=== PATIENT | female | born 2000 | race Caucasian/White ===

== ENCOUNTER 2023-06-13 16:35 | Emergency (ER) | payer OTHER ==
[2023-06-13] MEDS: DEXTROSE 5%-0.9% NACL 1,000 ML IV SCH (17:48)
[2023-06-13 18:00] LABS: Basophils % (A) 0 %; Eosinophils # (A) 0.1 k/uL (0-0.7); Eosinophils % (A) 1 %; HCT 40.2 % (34.0-46.0); HGB 13.3 gm/dL (11.4-16.0); Lymphocytes # (A) 0.6 k/uL (1.0-4.8); Lymphocytes % (A) 4 %; MCHC 33.1 g/dL (31.0-37.0); MCV 96.6 fL (80.0-100.0); Mean Platelet Volume 7.2; Monocytes # (A) 0.4 k/uL (0-1.0); Monocytes % (A) 2 %; Neutrophils # (A) 13.4 k/uL (1.3-7.7); Neutrophils % (A) 92 %; Platelet Count 305 k/uL (150-450); RBC 4.16 m/uL (3.80-5.40); WBC 14.5 k/uL (3.8-10.6)
--- NOTE | 2023-06-13 18:01 | ED ---
General Adult HPI - General Chief complaint: Nausea/Vomiting/Diarrhea Stated complaint: Vomiting-7 weeks preg Time Seen by Provider: 06/13/23 17:30 Source: patient, RN notes reviewed, old records reviewed Mode of arrival: ambulatory Limitations: no limitations - History of Present Illness Initial comments: Patient is a 23-year-old female presents emergency department for nausea, vomiting, nonfocal abdominal pain. Patient is 7 weeks . Denies any vaginal discharge or bleeding. Has not yet seen an [facility]. No ultrasound to confirm definitive IUP. No fevers or chills or sick contacts. Patient states she more or less for the last few weeks has been throwing up once a day however does seem to be worse today. This is her first . G1, P0. No other complications. No other acute complaints. Denies any urinary complaints. Presents for further evaluation at this time. - Related Data Home Medications Medication Instructions Recorded Confirmed No Known Home Medications 06/27/15 06/27/15 Allergies Allergy/AdvReac Type Severity Reaction Status Date / Time No Known Allergies Allergy Verified 06/13/23 16:51 Review of Systems ROS Statement: Those systems with pertinent positive or pertinent negative responses have been documented in the HPI. Review of Systems: CONST: Denies fever EYES: Denies blurry vision ENT: Denies nasal congestion C/V: Denies Chest pain RESP: Denies shortness of breath GI: Endorses abdominal cramping : Denies dysuria SKIN: Denies rash. MSK: Denies joint pain. NEURO: Denies headache ROS Other: All systems not noted in ROS Statement are negative. Past Medical History Past Medical History: No Reported History History of Any Multi-Drug Resistant Organisms: None Reported Past Surgical History: No Surgical Hx Reported, Cholecystectomy Past Psychological History: No Psychological Hx Reported Smoking Status: Current every day smoker Past Alcohol Use History: None Reported Past Drug Use History: None Reported, Marijuana General Exam - General Exam Comments Initial Comments: General: Appears in no acute distress. HEAD: Normal with no signs of head trauma. EYES: PERRLA, EOMI, conjunctiva normal, no discharge. ENT: Hearing grossly intact, normal oropharynx. Mildly dry mucous membranes. RESPIRATORY: Clear breath sounds bilaterally. No wheezes, rales, or rhonchi. C/V: Regular rate and rhythm. S1 and S2 auscultated, no edema, peripheral pulses 2+ and intact throughout ABD: Abd is soft, nontender, nondistended EXT: Normal range of motion, no obvious deformity SKIN: No rashes or lesions observed on exposed skin. NEURO: Alert and oriented x 4. Limitations: no limitations Course Vital Signs 06/13/23 06/13/23 16:48 19:18 Temperature 97.8 F 99.3 F Pulse Rate 75 116 H Respiratory 18 20 Rate Blood Pressure 135/80 111/66 O2 Sat by Pulse 100 97 Oximetry Medical Decision Making - Medical Decision Making Was pt. sent in by a medical professional or institution (, PA, [employer], urgent care, hospital, or correction...) When possible be specific @ -No Did you speak to anyone other than the patient for history (EMS, parent, family, police, friend...)? What history was obtained from this source @ -No Did you review nursing and triage notes (agree or disagree)? Why? @ -I reviewed and agree with nursing and triage notes Were old charts reviewed (outside hosp., previous admission, EMS record, old EKG, old radiological studies, urgent care reports/EKG's, correction records)? Report findings @ -No old charts were reviewed Differential Diagnosis (chest pain, altered mental status, abdominal pain women, abdominal pain men, vaginal bleeding, weakness, fever, dyspnea, syncope, headache, dizziness, GI bleed, back pain, seizure, CVA, palpatations, mental health, musculoskeletal)? @ -Nausea and vomiting in , hyperemesis gravidarum, dehydration, UTI. This list is not all inclusive. EKG interpreted by me (3pts min.). @ -None done X-rays interpreted by me (1pt min.). @ -None done CT interpreted by me (1pt min.). @ -None done U/S interpreted by me (1pt. min.). @ - ultrasound reveals a definitive IUP. Gestational age measured to be 6 weeks and 4 days with a heart rate of 133 bpm. Subchorionic hematoma is present as well. What testing was considered but not performed or refused? (CT, X-rays, U/S, labs)? Why? @ -None What meds were considered but not given or refused? Why? @ -None Did you discuss the management of the patient with other professionals (professionals i.e. , PA, [employer], lab, RT, psych nurse, nursing home social worker, boarding kennel or cattery operator, t eacher, production officer, manager case)? Give summary @ -No Was smoking cessation discussed for >3mins.? @ -No Was critical care preformed (if so, how long)? @ -No Were there social determinants of health that impacted care today? How? (Homelessness, low income, unemployed, alcoholism, drug addiction, transportation, low edu. Level, literacy, decrease access to med. care, group home, rehab)? @ -No Was there de-escalation of care discussed even if they declined (Discuss DNR or withdrawal of care, Hospice)? DNR status @ -No What co-morbidities impacted this encounter? (DM, HTN, Smoking, COPD, CAD, Cancer, CVA, ARF, Chemo, Hep., AIDS, mental health diagnosis, sleep apnea, morbid obesity)? @ -Currently 7 weeks Was patient admitted / discharged? Hospital course, mention meds given and ro kiana, prescriptions, significant lab abnormalities, going to OR and other pertinent info. @ -Based on patient's presentation and physical exam, presents with intractable nausea and vomiting the setting of 7-week . Has not yet seen an [facility] or obtain an ultrasound. She is also having intermittent abdominal cramping. We will obtain ultrasound to confirm definitive IUP as well as obtain basic labs. She will be symptomatically treated with initially vitamin B6 IV as well as a 1 L bolus of D5 normal saline. Ultrasound will be obtained. Patient was in agreement this plan. We did discuss obtaining viral swabs however patient declines at this time. Vital signs are within acceptable limits. Ultrasound reveals a definitive IUP. Subchorionic hematoma is present. 6 weeks and 5 days gestational age with a adequate heart rate. Patient required Reglan for nausea and felt better afterwards. Tolerating oral intake. Laboratory studies remarkable for 4+ ketones in the urine which fits with her intractable nausea and vomiting. Also has a mild leukocytosis likely secondary to nausea and vomiting. Remainder the labs unremarkable. No evidence of UTI. On reevaluation, patient is feeling improved. She is requesting ODT Zofran for home which I will provide her with a starter pack for. She is already on vitamins. We discussed the results of her ultrasound and she u nderstands she needs to follow-up with her [facility] which she has an appointment with. Patient was in agreement this plan for discharge. Strict return precautions discussed. I will provide the patient with a prescription for starter pack of ODT Zofran. I instructed the patient to follow up with their PCP in the next 1-3 days.. I explained that the patient should return to the emergency department if they experience any worsening symptoms. Strict return precautions were discussed with the patient. The patient expressed understanding of these instructions. I answered all questions that the patient had. The patient was discharged home in good condition with their prescriptions and follow up information. Undiagnosed new problem with uncertain prognosis? @ -No Drug Therapy requiring intensive monitoring for toxicity (Heparin, Nitro, Insulin, Cardizem)? @ -No Were any procedures done? @ -No Diagnosis/symptom? @ -Nausea and vomiting in , subchorionic hematoma, dehydration Acute, or Chronic, or Acute on Chronic? @ -Acute Uncomplicated (without systemic symptoms) or Complicated (systemic symptoms)? @ -Complicated Side effects of treatment? @ -None Exacerbation, Progression, or Severe Exacerbation] @ -No Poses a threat to life or bodily function? @ -Unlikely - Lab Data Result diagrams: 06/13/23 17:47 06/13/23 17:47 Lab Results 06/13/23 06/13/23 06/13/23 Range/Units 17:47 17:47 17:47 WBC 14.5 H (3.8-10.6) k/uL RBC 4.16 (3.80-5.40) m/uL Hgb 13.3 (11.4-16.0) gm/dL Hct 40.2 (34.0-46.0) % MCV 96.6 (80.0-100.0) fL MCH 32.0 (25.0-35.0) pg MCHC 33.1 (31.0-37.0) g/dL RDW 12.0 (11.5-15.5) % Plt Count 305 (150-450) k/uL MPV 7.2 Neutrophils % 92 % Lymphocytes % 4 % Monocytes % 2 % Eosinophils % 1 % Basophils % 0 % Neutrophils # 13.4 H (1.3-7.7) k/uL Lymphocytes # 0.6 L (1.0-4.8) k/uL Monocytes # 0.4 (0-1.0) k/uL Eosinophils # 0.1 (0-0.7) k/uL Basophils # 0.0 (0-0.2) k/uL Sodium 136 L (137-145) mmol/L Potassium 3.5 (3.5-5.1) mmol/L Chloride 103 (98-107) mmol/L Carbon Dioxide 19 L (22-30) mmol/L Anion Gap 14 mmol/L BUN 13 (7-17) mg/dL Creatinine 0.52 (0.52-1.04) mg/dL Est GFR (CKD-EPI)AfAm >90 (>60 ml/min/1.73 sqM) Est GFR (CKD-EPI)NonAf >90 (>60 ml/min/1.73 sqM) Glucose 109 H (74-99) mg/dL Calcium 10.1 (8.4-10.2) mg/dL HCG, Quant 030412.0 mIU/mL Urine Color Yellow Urine Appearance Cloudy H (Clear) Urine pH 6.5 (5.0-8.0) Ur Specific [place] 1.038 H (1.001-1.035) Urine Protein 1+ H (Negative) Urine Glucose (UA) Negative (Negative) Urine Ketones 4+ H (Negative) Urine Blood Negative (Negative) Urine Nitrite Negative (Negative) Urine Bilirubin Negative (Negative) Urine Urobilinogen <2.0 (<2.0) mg/dL Ur Leukocyte Esterase Moderate H (Negative) Urine RBC 1 (0-5) /hpf Urine WBC 5 (0-5) /hpf Ur Squamous Epith Cells 11 H (0-4) /hpf Urine Mucus Many H (None) /hpf Disposition Clinical Impression: Nausea and vomiting during , Subchorionic hematoma, Dehydration Disposition: HOME SELF-CARE Condition: Good Instructions (If sedation given, give patient instructions): Acute Nausea and Vomiting (ED), Subchorionic Hemorrhage (ED) Is patient prescribed a controlled substance at d/c from ED?: No Referrals: Beena Garcia MD [Primary Care Provider] - 1-2 days Time of Disposition: 19:12
[2023-06-13 18:06] LABS: Appearance,Urine Cloudy (Clear); Bilirubin,Urine Negative (Negative); Blood,Urine Negative (Negative); Color,Urine Yellow; Glucose,Urine (UA) Negative (Negative); Ketones,Urine 4+ (Negative); Leukocyte Esterase,Urine Moderate (Negative); Mucus,Urine Many /hpf; Nitrite,Urine Negative (Negative); PH, Urine 6.5 (5.0-8.0); Protein,Urine 1+ (Negative); RBC,Urine 1 /hpf (0-5); Specific Gravity,Urine 1.038 (1.001-1.035); Squamous Epithelial Cell,Urine 11 /hpf (0-4); Urobilinogen,Urine <2.0 mg/dL (<2.0); WBC,Urine 5 /hpf (0-5)
[2023-06-13] MEDS: PYRIDOXINE 100 MG/ML 1 ML VIAL IVP STA (18:11)
[2023-06-13 18:13] LABS: African American GFR (CKD) >90 (>60 ml/min/1.73 sqM); Anion Gap 14 mmol/L; Blood Urea Nitrogen 13 mg/dL (7-17); Calcium 10.1 mg/dL (8.4-10.2); Carbon Dioxide 19 mmol/L (22-30); Chloride 103 mmol/L (98-107); Glucose 109 mg/dL (74-99); Non-African American GFR(CKD) >90 (>60 ml/min/1.73 sqM); Potassium 3.5 mmol/L (3.5-5.1); Sodium 136 mmol/L (137-145)
--- NOTE | 2023-06-13 18:43 | US ---
EXAMINATION TYPE: Transabdominal DATE OF EXAM: 06/13/2023 6:25 PM COMPARISON: NONE CLINICAL INDICATION: Female, 23 years old with history of 7w. cramping, n/v; N/V, no spotting EXAM PERFORMED: Transabdominal (TA) ultrasound of gravid uterus EXAM MEASUREMENTS: GESTATIONAL AGE / DATING Physician Established: Not yet established Dates by LMP: (6 weeks/6 days) EDC: 01/31/2024 Dates by First Scan: No previous this is first scan Dates by Current Scan for: (6 weeks/ 4 days) EDC: 02/02/2024 MATERNAL ANATOMY Uterus: 9.7 x 6.7 x 6.3 cm Right Ovary: 3.1 x 1.8 x 2.0 cm Left Ovary: 2.5 x 2.4 x 1.5 cm Post CDS / Adnexa: trace free fluid adjacent to right ovary. No adnexal mass visualized. Presence of corpus luteal cyst: right ovary = 2.0 x 1.5 x 2.0 cm Presence of subchorionic bleed: Two hypoechoic structures outside the gestational sac are seen. #1= 3 .1 x 1.5 x 1.5 cm, #2= 1.7 x 1.1 x 0.6 cm GESTATION / SURVEY CRL: 0.7 cm 6 weeks/4 days) MSD: seen not measured Yolk Sac (normal less than 6mm): 2.3 mm Heart Rate: 133 bpm Rhythm: Normal IUP: Viable IUP Date of LMP: 04/26/2023, G1 Beta HcG (if available): Not available at this time IMPRESSION: 1. Single, live intrauterine measuring 6 weeks 4 days, heart rate 133 BPM. 2. There are 2 hypoechoic structures outside the gestational sac, suggestive of subchorionic hematoma s. Follow-up advised.
[2023-06-13] MEDS: METOCLOPRAMIDE 5 MG/ML 2 ML VIAL IVP STA (18:47)
[2023-06-13] MEDS: ONDANSETRON 4 MG ODT STARTER PACK 2 TAB BTL PO STA (19:23)
[2023-06-13 19:50] VITALS: BP 111/66; PULSE 116; RESP 20; TEMP 99.3
== END 2023-06-13 19:28 | disposition home or self-care (01) ==
LOC: EC 16:35
DX: O99.281 Endocrine, nutritional and metabolic diseases complicating pregnancy, first trimester (principal); E86.0 Dehydration; O99.331 Smoking (tobacco) complicating pregnancy, first trimester; O99.321 Drug use complicating pregnancy, first trimester; F12.90 Cannabis use, unspecified, uncomplicated; F17.200 Nicotine dependence, unspecified, uncomplicated; Z3A.01 Less than 8 weeks gestation of pregnancy
CPT/HCPCS: 36415; 80048; 85025; 81001; 84702; 76801; 99284; 96374; 96375; 96361; J3415; J2765; S0119

== ENCOUNTER 2024-01-11 09:35 | Inpatient (IN) | payer OTHER ==
[2024-01-11] MEDS: NALBUPHINE 10 MG/ML (10 ML MDV) IV PRN (10:15)
[2024-01-11] MEDS ORDERED: miSOPROStoL 200 MCG TAB PO PRN (10:29)
[2024-01-11] MEDS ORDERED: TRANEXAMIC 1,000 MG/100ML-NACL 1,000 MG in EMPTY BAG 1 BAG IV PRN (10:29)
[2024-01-11] MEDS ORDERED: TERBUTALINE 1 MG/ML VIAL SQ PRN (10:29)
[2024-01-11] MEDS ORDERED: METHYLERGONOVINE 0.2 MG/ML 1 ML AMP IM PRN (10:29)
[2024-01-11] MEDS ORDERED: miSOPROStoL 200 MCG TAB RECTAL PRN (10:29)
[2024-01-11] MEDS ORDERED: OXYTOCIN 10 UNIT/ML 1 ML VIAL IM PRN (10:29)
[2024-01-11] MEDS ORDERED: CARBOPROST TROMETHAMINE 250 MCG/ML 1 ML AMP IM PRN (10:29)
[2024-01-11] MEDS ORDERED: SIMETHICONE 80 MG CHEWABLE PO PRN (10:30)
[2024-01-11] MEDS ORDERED: diphenhydrAMINE 25 MG CAP PO PRN (10:30)
[2024-01-11] MEDS ORDERED: BENZOCAINE/MENTHOL SPRAY 1 GM/SPRAY AEROSOL TOPICAL PRN (10:30)
[2024-01-11] MEDS ORDERED: HYDROCORTISONE 2.5% RECTAL CREAM 30 GM TUBE RECTAL PRN (10:30)
[2024-01-11] MEDS ORDERED: diphenhydrAMINE 50 MG/ML 1 ML VIAL IVP PRN ×2 (10:30)
[2024-01-11] MEDS ORDERED: ZOLPIDEM 5 MG TAB PO PRN (10:30)
[2024-01-11] MEDS ORDERED: diphenhydrAMINE 50 MG CAP PO PRN (10:30)
[2024-01-11] MEDS ORDERED: LANOLIN CREAM 1 GM TUBE TOPICAL PRN (10:30)
--- NOTE | 2024-01-11 10:37 | P.HPOB ---
History of Present Illness H&P Date: 01/11/24 Chief Complaint: Baby at 37-0/7 weeks, active labor This is a 23-year-old 1 para 0 at 37-0/7 weeks, estimated due date of 1122 based on last menstrual period consistent with first trimester ultrasound. Patient presents to labor and delivery with complaints of contractions. Patient states she noted back pain that began last evening and became more intense this morning. Patient denies loss of fluid. Patient notes good movement. Patient has been receiving mostly routine care that has been essentially uncomplicated. Last visit was at 34 weeks. No group beta strep culture was performed. On blood work this patient is about type of O+, rubella status immune, hepatitis B surface engine negative, HIV negative, RPR is nonreactive Review of Systems Constitutional: Denies chills, Denies fatigue, Denies fever Ears, nose, mouth and throat: Denies headache Cardiovascular: Denies leg edema Respiratory: Denies dyspnea Gastrointestinal: Denies constipation, Denies diarrhea, Denies nausea, Denies vomiting Genitourinary: Reports Past Medical History Past Medical History: No Reported History History of Any Multi-Drug Resistant Organisms: None Reported Past Surgical History: No Surgical Hx Reported, Cholecystectomy Past Psychological History: No Psychological Hx Reported Smoking Status: Current every day smoker Past Alcohol Use History: None Reported Past Drug Use History: None Reported, Marijuana Medications and Allergies Home Medications Medication Instructions Recorded Confirmed Type No Known Home Medications 06/27/15 01/11/24 History Allergies Allergy/AdvReac Type Severity Reaction Status Date / Time No Known Allergies Allergy Verified 01/11/24 10:29 Exam Osteopathic Statement: *. No significant issues noted on an osteopathic structural exam other than those noted in the History and Physical/Consult. Intake and Output 01/10/24 01/11/24 01/11/24 23:59 06:59 14:59 Other: Weight 74.389 kg Targeted physical exam is performed this date General Is well-nourished well- developed female in active labor, breathing is nonlabored abdomen is gravid, on cervical exam she is completely dilated with a bulging bag of water, amniotomy is performed and clear fluid is obtained. Category 2 heart tones are appreciated she is kristine every 2 to 3 minutes. Assessment and Plan (1) Term Current Visit: Yes Status: Acute Code(s): Z34.90 - ENCNTR FOR SUPRVSN OF NORMAL , UNSP, UNSP TRIMESTER SNOMED Code(s): 39794294 (2) Active labor Current Visit: Yes Status: Acute Code(s): GYY3828 - SNOMED Code(s): 038666795 Plan: 23-year-old 1 para 0 at 37-0/7 weeks that presents in active labor. Patient is admitted to labor and delivery amniotomy was performed. Patient will begin pushing. Anticipate spontaneous vaginal delivery.
[2024-01-11] MEDS: LIDOCAINE 0.5% (PF) 5 MG/ML (50 ML SDV) SQ PRN (10:39)
[2024-01-11 12:06] LABS: Basophils % (A) 0 %; Eosinophils % (A) 0 %; HCT 34.4 % (34.0-46.0); HGB 11.5 gm/dL (11.4-16.0); Lymphocytes # (A) 1.3 k/uL (1.0-4.8); Lymphocytes % (A) 6 %; MCH 32.6 pg (25.0-35.0); MCHC 33.6 g/dL (31.0-37.0); MCV 97.3 fL (80.0-100.0); Mean Platelet Volume 7.5; Monocytes # (A) 1.1 k/uL (0-1.0); Monocytes % (A) 5 %; Neutrophils % (A) 88 %; Platelet Count 275 k/uL (150-450); RBC 3.54 m/uL (3.80-5.40); RDW 12.1 % (11.5-15.5); WBC 21.5 k/uL (3.8-10.6)
[2024-01-11] MEDS: ACETAMINOPHEN TAB 500 MG TAB PO SCH (13:55)
[2024-01-11] MEDS: SENNOSIDES-DOCUSATE SODIUM 1 EACH TAB PO SCH (20:06)
[2024-01-11] MEDS: IBUPROFEN 800 MG TAB PO SCH (20:06)
--- NOTE | 2024-01-12 08:52 | P.DS ---
Providers Date of admission: 01/11/24 10:00 Expected date of discharge: 01/12/24 Attending physician: Vicky Fonseca Primary care physician: Stated None Hospital Course: Ms. Ley is a 23 year old now PPD#1 s/p normal spontaneous vaginal delivery. The patient is doing well this morning and had no acute events overnight. She has no complaints this morning. She reports minimal lochia, passing flatus, voiding without difficulty, ambulating, and eating/drinking without nausea or vomiting. doing well at bedside, s/p circumcision. She denies chest pain, shortness of breathing, fevers, or chills overnight. She denies pain or swelling in the legs. restrictions are reviewed with the patient including pelvic rest for 6 weeks. The patient is encouraged to call the office if she experiences any heavy bleeding, foul-smelling discharge, breast complaints, or any if she has any other concerns. She will follow up in the office with in 6 weeks for exam. She plans to use Motrin and Tylenol OTC prn. All questions are answered. Assessment: 23 year old now PPD#1 s/p Patient Condition at Discharge: Good Plan - Discharge Summary New Discharge Prescriptions: No Action No Known Home Medications Discharge Medication List No Known Home Medications 06/27/15 [History] Follow up Appointment(s)/Referral(s): Alley Parker MD [STAFF PHYSICIAN] - 6 Weeks Activity/Diet/Wound Care/Special Instructions: Instructions 1. Do not begin any exercise program for 3 weeks. 2. Do not resume sexual relations for 6 weeks or longer if uncomfortable. 3. You may take tub baths or showers at any time. 4. You may use tampons if desired after 6 weeks. 5. Keep any areas repaired with stitches clean and dry. 6. If you are not nursing, wear a good fitting, supportive bra during the day and limit fluid intake for at least 1 week to prevent breast engorgement. 7. Call the office, , within the next week to make appointment for your 6 week checkup if it has not already been made. 8. Report any of the following occurrences to the doctor promptly: a. Heavy, excessive bleeding b. Chills, fever c. Burning or frequency of urination d. Pain or redness and breasts if nursing e. Increasing pain or swelling of vulva (stitches). In addition to the above instructions, the following additional should be followed: 1. No heavy lifting or straining (exercising) until after 6 week checkup. 2. Keep abdominal incision clean and dry: You may wear a dressing if more comfortable. 3. Make office appointment for 2 weeks after delivery date. Discharge Disposition: HOME SELF-CARE
[2024-01-12] MEDS: LACTATED RINGERS 1,000 ML IV SCH (09:38)
--- NOTE | 2024-01-12 16:37 | P.PROBDLV ---
Vaginal Delivery Note - . Vaginal Delivery Note: 23-year-old 1 para 0 at 37 weeks that presents to labor and delivery with complaints of regular painful contractions. Upon assessment in OB triage patient was noted to be completely dilated with a bulging bag of water appreciated. Patient was moved to a labor and delivery suite where amniotomy was completed. Copious clear fluid was appreciated. Patient began pushing and had a normal spontaneous vaginal delivery of a viable male infant at 1004, weight of 6-1 Umbilical cord was doubly clamped and cut, placenta was delivered spontaneously intact with a three-vessel cord being noted. On inspection of the patient's vaginal vault a second-degree laceration was appreciated. This was injected with lidocaine and repaired in the usual fashion with 3-0 Rapide. Uterus was noted to be firm below the umbilicus. After closure of laceration hemostasis was noted. Patient was given Nubain prior to repair. All counts remain correct x 2 at the end of the delivery. Patient and infant tolerated delivery well and are resting comfortably.
[2024-01-13 08:57] VITALS: BP 145/89; PULSE 75; RESP 16; TEMP 98.4
== END 2024-01-13 13:20 | disposition home or self-care (01) | DRG 560 ==
LOC: FBPOP 09:35 → 4FBP 10:00
PROVIDERS: ADMIT Obstetrics & Gynecology Obstetrics; ATTEND Obstetrics & Gynecology Obstetrics
PROC: 10E0XZZ Delivery of Products of Conception, External Approach (ICD-10-PCS; principal; 2024-01-11)
PROC: 10907ZC Drainage of Amniotic Fluid, Therapeutic from Products of Conception, Via Natural or Artificial Opening (ICD-10-PCS; 2024-01-11)
PROC: 0KQM0ZZ Repair Perineum Muscle, Open Approach (ICD-10-PCS; 2024-01-11)
DX: O99.334 Smoking (tobacco) complicating childbirth (principal); Z37.0 Single live birth; F17.210 Nicotine dependence, cigarettes, uncomplicated; O70.1 Second degree perineal laceration during delivery; Z3A.37 37 weeks gestation of pregnancy
CPT/HCPCS: 85025; 86850; 86900; 86901